=== PATIENT | female | born 1985 | race Caucasian/White ===

== ENCOUNTER 2017-12-16 00:37 | Inpatient (IN) | payer OTHER ==
[2017-12-16] MEDS ORDERED: LABETALOL 5 MG/ML VIAL MDV IVP STA ×2 (01:17→03:04)
--- NOTE | 2017-12-16 01:28 | ED ---
General Adult HPI - General Chief complaint: Recheck/Abnormal Lab/Rx Stated complaint: hypertension Time Seen by Provider: 12/16/17 01:14 Source: patient, family, RN notes reviewed Mode of arrival: ambulatory Limitations: no limitations - History of Present Illness Initial comments: This is a 32-year-old female who presents to the emergency department with chief complaint of high blood pressure. Patient was diagnosed with preeclampsia. She gave 4 days ago. Patient states that she did have a hemorrhage during childbirth. She states she is on oral labetalol. Patient states that the midwives from [place] delivered her baby. She states that she was in contact with them and they did recommend that she come to the emergency department. Patient states throughout today she has had a headache and lightheadedness. She states that she checked her blood pressure at home because she was feeling short of breath and had some chest pressure. She denies any abdominal pain, nausea or vomiting, loss of consciousness, diarrhea. Patient states that her vaginal bleeding is very minimal. - Related Data Home Medications Medication Instructions Recorded Confirmed Acetaminophen [Tylenol] 325 mg PO Q4H PRN 12/16/17 12/16/17 Docusate Sodium [Dok] 100 mg PO BID PRN 12/16/17 12/16/17 Ferrous Sulfate [Feosol] 325 mg PO BID 12/16/17 12/16/17 Labetalol [Trandate] 200 mg PO BID 12/16/17 12/16/17 Allergies Allergy/AdvReac Type Severity Reaction Status Date / Time No Known Allergies Allergy Verified 12/16/17 00:45 Review of Systems ROS Statement: Those systems with pertinent positive or pertinent negative responses have been documented in the HPI. ROS Other: All systems not noted in ROS Statement are negative. Past Medical History Additional Past Medical History / Comment(s): preeclampsia History of Any Multi-Drug Resistant Organisms: None Reported Additional Past Surgical History / Comment(s): ENT Past Psychological History: Anxiety, Depression Smoking Status: Former smoker Past Alcohol Use History: None Reported Past Drug Use History: None Reported General Exam - General Exam Comments Initial Comments: General: Awake and alert, well-developed; in no apparent distress. Pale and ill in appearance. HEENT: Head atraumatic, normocephalic. Pupils are equal, round and reactive to light. Extraocular movements intact. Oropharynx moist without erythema or exudate. Neck: Supple. Normal ROM. Cardiovascular: Regular rate and rhythm. No murmurs, rubs or gallops. Chest symmetrical. Respiratory: Lungs clear to auscultation bilaterally. No wheezes, rales or rhonchi. Normal respiratory effort with no use of accessory muscles. Abdomen: Soft, non-tender, non-distended. No rigidity, rebound or guarding. Normal bowel sounds in all 4 quadrants. Musculoskeletal: Normal ROM, no tenderness bilateral upper and lower extremities. Ambulating normally. Skin: Pale, warm and dry. Neurological: Alert and oriented x3. CN II-XII grossly intact. Speech is fluent and answers are appropriate. No focal neuro deficits. Psychiatric: Normal mood and affect. No overt signs of depression or anxiety noted. Limitations: no limitations Course Vital Signs 12/16/17 12/16/17 12/16/17 00:40 02:33 02:52 Temperature 98.3 F Pulse Rate 77 77 74 Respiratory 20 16 Rate Blood Pressure 172/85 159/71 153/74 O2 Sat by Pulse 99 98 Oximetry 12/16/17 12/16/17 12/16/17 03:23 03:34 03:46 Temperature Pulse Rate 69 77 71 Respiratory 16 16 Rate Blood Pressure 149/79 147/82 145/85 O2 Sat by Pulse 98 Oximetry - Reevaluation(s) Reevaluation #1: Spoke directly with DIRECTOR OF VITAL STATISTICS, Dr. Diamond. Labs have been ordered. Labetalol and magnesium have been ordered. Blood pressure will be stabilized then patient will be transferred to labor and delivery floor where she will be admitted to Dr. Diamond. 12/16/17 02:01 EKG Findings - EKG Comments: EKG Findings:: 2:20:59. Sinus bradycardia with premature ventricular complexes or fusion complexes. Septal infarct, age undetermined. Possible lateral infarct, age undetermined. Ventricular rate 55 bpm, MO interval 168, QRS duration 72, QT/QTC 390/373. EKG was also evaluated by attending physician, Dr. Hayden. Medical Decision Making - Medical Decision Making This is a 32-year-old female who presents to the emergency department with chief complaint of high blood pressure. Patient gave 4 days ago. She was diagnosed with preeclampsia. Patient states that throughout the day today she has felt dizzy and has had a headache. She states this evening she developed chest pressure and shortness of breath. She checked her blood pressure and it was 170/100. On presentation, patient had a blood pressure of 172/85. She will was given 20 mg of IV labetalol. This did bring her blood pressure down to 150s/70s. She was then given a dose of hydralazine. I was in contact with Dr. Diamond, on-call DIRECTOR OF VITAL STATISTICS. Once patient's blood pressure is stable she will be transferred to labor and delivery where she will be admitted and monitored. Magnesium has been ordered and is running. CBC does reveal a hemoglobin at 8.1. Patient does admit to having hemorrhage during , however patient states her hemoglobin is increased since discharge home when it was 7.3. CMP reveals a decreased total protein 5.7 and an albumin of 3.0. Chloride is 111. No other significant abnormalities. UA shows trace protein, large blood, large leukocyte esterase, >182 red blood cells, 45 white blood cells and rare bacteria. Urine culture is pending. Urine random, creatinine is 34.8 and urine random, total protein is elevated at 23. Patient's blood pressure has been stabilized. Orders are placed and patient is stable for transport to labor and delivery. She is in no acute distress. She is in agreement for admission. - Lab Data Result diagrams: 12/16/17 02:08 12/16/17 02:08 Lab Results 12/16/17 12/16/17 12/16/17 Range/Units 02:08 02:08 02:08 WBC 7.7 (3.8-10.6) k/uL RBC 3.10 L (3.80-5.40) m/uL Hgb 8.1 L (11.4-16.0) gm/dL Hct 25.5 L (34.0-46.0) % MCV 82.1 (80.0-100.0) fL MCH 26.1 (25.0-35.0) pg MCHC 31.7 (31.0-37.0) g/dL RDW 15.7 H (11.5-15.5) % Plt Count 264 (150-450) k/uL Neutrophils % 64 % Lymphocytes % 28 % Monocytes % 4 % Eosinophils % 3 % Basophils % 0 % Neutrophils # 4.9 (1.3-7.7) k/uL Lymphocytes # 2.2 (1.0-4.8) k/uL Monocytes # 0.3 (0-1.0) k/uL Eosinophils # 0.2 (0-0.7) k/uL Basophils # 0.0 (0-0.2) k/uL Hypochromasia Moderate PT (9.0-12.0) sec INR (<1.2) APTT (22.0-30.0) sec Sodium 142 (137-145) mmol/L Potassium 4.5 (3.5-5.1) mmol/L Chloride 111 H (98-107) mmol/L Carbon Dioxide 24 (22-30) mmol/L Anion Gap 7 mmol/L BUN 6 L (7-17) mg/dL Creatinine 0.58 (0.52-1.04) mg/dL Est GFR (CKD-EPI)AfAm >90 (>60 ml/min/1.73 sqM) Est GFR (CKD-EPI)NonAf >90 (>60 ml/min/1.73 sqM) Glucose 87 (74-99) mg/dL Uric Acid 5.9 (3.7-7.4) mg/dL Calcium 9.3 (8.4-10.2) mg/dL Magnesium 1.8 (1.6-2.3) mg/dL Total Bilirubin 0.1 L (0.2-1.3) mg/dL AST 19 (14-36) U/L ALT 24 (9-52) U/L Alkaline Phosphatase 97 (38-126) U/L Lactate Dehydrogenase 464 (313-618) U/L Total Protein 5.7 L (6.3-8.2) g/dL Albumin 3.0 L (3.5-5.0) g/dL Urine Color Urine Appearance (Clear) Urine pH (5.0-8.0) Ur Specific [place] (1.001-1.035) Urine Protein (Negative) Urine Glucose (UA) (Negative) Urine Ketones (Negative) Urine Blood (Negative) Urine Nitrite (Negative) Urine Bilirubin (Negative) Urine Urobilinogen (<2.0) mg/dL Ur Leukocyte Esterase (Negative) Urine RBC (0-5) /hpf Urine WBC (0-5) /hpf Ur Squamous Epith Cells (0-4) /hpf Urine Bacteria (None) /hpf Urine Mucus (None) /hpf Ur Random Creatinine mg/dL U Random Total Protein (<12) mg/dL 12/16/17 12/16/17 12/16/17 Range/Units 02:11 02:11 02:11 WBC (3.8-10.6) k/uL RBC (3.80-5.40) m/uL Hgb (11.4-16.0) gm/dL Hct (34.0-46.0) % MCV (80.0-100.0) fL MCH (25.0-35.0) pg MCHC (31.0-37.0) g/dL RDW (11.5-15.5) % Plt Count (150-450) k/uL Neutrophils % % Lymphocytes % % Monocytes % % Eosinophils % % Basophils % % Neutrophils # (1.3-7.7) k/uL Lymphocytes # (1.0-4.8) k/uL Monocytes # (0-1.0) k/uL Eosinophils # (0-0.7) k/uL Basophils # (0-0.2) k/uL Hypochromasia PT (9.0-12.0) sec INR (<1.2) APTT (22.0-30.0) sec Sodium (137-145) mmol/L Potassium (3.5-5.1) mmol/L Chloride (98-107) mmol/L Carbon Dioxide (22-30) mmol/L Anion Gap mmol/L BUN (7-17) mg/dL Creatinine (0.52-1.04) mg/dL Est GFR (CKD-EPI)AfAm (>60 ml/min/1.73 sqM) Est GFR (CKD-EPI)NonAf (>60 ml/min/1.73 sqM) Glucose (74-99) mg/dL Uric Acid (3.7-7.4) mg/dL Calcium (8.4-10.2) mg/dL Magnesium (1.6-2.3) mg/dL Total Bilirubin (0.2-1.3) mg/dL AST (14-36) U/L ALT (9-52) U/L Alkaline Phosphatase (38-126) U/L Lactate Dehydrogenase (313-618) U/L Total Protein (6.3-8.2) g/dL Albumin (3.5-5.0) g/dL Urine Color Yellow Urine Appearance Clear (Clear) Urine pH 7.5 (5.0-8.0) Ur Specific [place] 1.007 (1.001-1.035) Urine Protein Trace H (Negative) Urine Glucose (UA) Negative (Negative) Urine Ketones Negative (Negative) Urine Blood Large H (Negative) Urine Nitrite Negative (Negative) Urine Bilirubin Negative (Negative) Urine Urobilinogen <2.0 (<2.0) mg/dL Ur Leukocyte Esterase Large H (Negative) Urine RBC >182 H (0-5) /hpf Urine WBC 45 H (0-5) /hpf Ur Squamous Epith Cells 1 (0-4) /hpf Urine Bacteria Rare H (None) /hpf Urine Mucus Rare H (None) /hpf Ur Random Creatinine 34.8 mg/dL U Random Total Protein 23 H (<12) mg/dL 12/16/17 Range/Units 02:33 WBC (3.8-10.6) k/uL RBC (3.80-5.40) m/uL Hgb (11.4-16.0) gm/dL Hct (34.0-46.0) % MCV (80.0-100.0) fL MCH (25.0-35.0) pg MCHC (31.0-37.0) g/dL RDW (11.5-15.5) % Plt Count (150-450) k/uL Neutrophils % % Lymphocytes % % Monocytes % % Eosinophils % % Basophils % % Neutrophils # (1.3-7.7) k/uL Lymphocytes # (1.0-4.8) k/uL Monocytes # (0-1.0) k/uL Eosinophils # (0-0.7) k/uL Basophils # (0-0.2) k/uL Hypochromasia PT 9.6 (9.0-12.0) sec INR 1.0 (<1.2) APTT 22.1 (22.0-30.0) sec Sodium (137-145) mmol/L Potassium (3.5-5.1) mmol/L Chloride (98-107) mmol/L Carbon Dioxide (22-30) mmol/L Anion Gap mmol/L BUN (7-17) mg/dL Creatinine (0.52-1.04) mg/dL Est GFR (CKD-EPI)AfAm (>60 ml/min/1.73 sqM) Est GFR (CKD-EPI)NonAf (>60 ml/min/1.73 sqM) Glucose (74-99) mg/dL Uric Acid (3.7-7.4) mg/dL Calcium (8.4-10.2) mg/dL Magnesium (1.6-2.3) mg/dL Total Bilirubin (0.2-1.3) mg/dL AST (14-36) U/L ALT (9-52) U/L Alkaline Phosphatase (38-126) U/L Lactate Dehydrogenase (313-618) U/L Total Protein (6.3-8.2) g/dL Albumin (3.5-5.0) g/dL Urine Color Urine Appearance (Clear) Urine pH (5.0-8.0) Ur Specific [place] (1.001-1.035) Urine Protein (Negative) Urine Glucose (UA) (Negative) Urine Ketones (Negative) Urine Blood (Negative) Urine Nitrite (Negative) Urine Bilirubin (Negative) Urine Urobilinogen (<2.0) mg/dL Ur Leukocyte Esterase (Negative) Urine RBC (0-5) /hpf Urine WBC (0-5) /hpf Ur Squamous Epith Cells (0-4) /hpf Urine Bacteria (None) /hpf Urine Mucus (None) /hpf Ur Random Creatinine mg/dL U Random Total Protein (<12) mg/dL Disposition Clinical Impression: Preeclampsia Disposition: ADMITTED IP TO THIS HOSP Condition: Fair Is patient prescribed a controlled substance at d/c from ED?: No Referrals: None,Stated [Primary Care Provider] - 1-2 days Time of Disposition: 03:53
[2017-12-16] MEDS ORDERED: MAGNESIUM SULFATE-D5W PMX 1 GM in DEXTROSE/WATER 1 100ML.BAG IVPB SCH (01:30)
[2017-12-16] MEDS: MAGNESIUM SULFATE-D5W PMX 1 GM in DEXTROSE/WATER 1 100ML.BAG IVPB SCH ×4 (02:00→06:19)
[2017-12-16 02:19] LABS: Basophils % (A) 0 %; Eosinophils # (A) 0.2 k/uL (0-0.7); Eosinophils % (A) 3 %; HCT 25.5 % (34.0-46.0); HGB 8.1 gm/dL (11.4-16.0); Hypochromasia Moderate; Lymphocytes # (A) 2.2 k/uL (1.0-4.8); Lymphocytes % (A) 28 %; MCH 26.1 pg (25.0-35.0); MCHC 31.7 g/dL (31.0-37.0); MCV 82.1 fL (80.0-100.0); Mean Platelet Volume 6.4; Monocytes # (A) 0.3 k/uL (0-1.0); Monocytes % (A) 4 %; Neutrophils # (A) 4.9 k/uL (1.3-7.7); Neutrophils % (A) 64 %; Platelet Count 264 k/uL (150-450); RDW 15.7 % (11.5-15.5); WBC 7.7 k/uL (3.8-10.6)
[2017-12-16 02:28] LABS: Appearance,Urine Clear (Clear); Bacteria,Urine Rare /hpf; Bilirubin,Urine Negative (Negative); Blood,Urine Large (Negative); Color,Urine Yellow; Glucose,Urine (UA) Negative (Negative); Ketones,Urine Negative (Negative); Leukocyte Esterase,Urine Large (Negative); Mucus,Urine Rare /hpf; Nitrite,Urine Negative (Negative); PH, Urine 7.5 (5.0-8.0); Protein,Urine Trace (Negative); RBC,Urine >182 /hpf (0-5); Specific Gravity,Urine 1.007 (1.001-1.035); Squamous Epithelial Cell,Urine 1 /hpf (0-4); Urobilinogen,Urine <2.0 mg/dL (<2.0); WBC,Urine 45 /hpf (0-5)
[2017-12-16 02:34] LABS: ALT 24 U/L (9-52); AST 19 U/L (14-36); Alkaline Phosphatase 97 U/L (38-126); Anion Gap 7 mmol/L; Blood Urea Nitrogen 6 mg/dL (7-17); Calcium 9.3 mg/dL (8.4-10.2); Carbon Dioxide 24 mmol/L (22-30); Chloride 111 mmol/L (98-107); Glucose 87 mg/dL (74-99); LDH 464 U/L (313-618); Potassium 4.5 mmol/L (3.5-5.1); Sodium 142 mmol/L (137-145); Total Bilirubin 0.1 mg/dL (0.2-1.3); Total Protein 5.7 g/dL (6.3-8.2); Uric Acid 5.9 mg/dL (3.7-7.4)
[2017-12-16 02:52] LABS: Partial Thromboplastin Time 22.1 sec (22.0-30.0); Prothrombin Time 9.6 sec (9.0-12.0)
[2017-12-16] MEDS ORDERED: hydrALAZINE HCL 20 MG/ML 1 ML VIAL IVP STA (03:05)
[2017-12-16] MEDS ORDERED: hydrALAZINE HCL 20 MG/ML 1 ML VIAL IVP PRN (03:47)
[2017-12-16] MEDS ORDERED: LABETALOL 5 MG/ML VIAL MDV IVP PRN ×3 (03:47)
[2017-12-16] MEDS ORDERED: SODIUM CHLORIDE 0.9% 1,000 ML IV STA (03:50)
[2017-12-16] MEDS ORDERED: ACETAMINOPHEN TAB 325 MG TAB PO STA (03:57)
[2017-12-16 05:31] VITALS: BMI 41.0
[2017-12-16] MEDS ORDERED: CALCIUM CHLORIDE 500 MG in SODIUM CHLORIDE 0.9% 50 ML IVPB ONE (05:56)
[2017-12-16] MEDS ORDERED: MAGNESIUM SULFATE-WATER PMX 4 GM in WATER FOR INJECTION 1 50ML.BAG IVPB ONE (05:56)
[2017-12-16] MEDS: LACTATED RINGERS 1,000 ML IV SCH (06:00)
[2017-12-16] MEDS: MAGNESIUM SULFATE-WATER PMX 20 GM in WATER FOR INJECTION 1 500ML.BAG IV SCH ×2 (06:46→17:11)
--- NOTE | 2017-12-16 11:33 | P.HPOB ---
History of Present Illness H&P Date: 12/16/17 Chief Complaint: pre-eclampsia 32 year old presents 5 days post from a vaginal delivery with increased blood pressure and headache. She was diagnosed with pre-eclampsia and delivered at [facility] on 12-11-17. She was then given magnesium sulfate for 12 hours after delivery. Upon discharge she was given a prescription for labetalol 200mg to take twice daily and a blood pressure cuff to monitor at home. Her BP was elevated last night and she came to our ER. HEr her BP was 170's over 90's. She was treated with IV labetalol, hydralizine and magnesium sulfate. Her labs are normal except a PC ratio of 0.66. She has severe pre-eclampsia by blood pressure and by neurologic symptom of headache. I will admit her and keep her on mag sulfate for at least 24 hours. Review of Systems All systems: negative Constitutional: Denies chills, Denies fever Eyes: denies blurred vision, denies pain Ears, nose, mouth and throat: Denies headache, Denies sore throat Cardiovascular: Denies chest pain, Denies shortness of breath Respiratory: Denies cough Gastrointestinal: Denies abdominal pain, Denies diarrhea, Denies nausea, Denies vomiting Genitourinary: Denies dysuria, Denies hematuria Musculoskeletal: Denies myalgias Integumentary: Denies pruritus, Denies rash Neurological: Denies numbness, Denies weakness Psychiatric: Denies anxiety, Denies depression Endocrine: Denies fatigue, Denies weight change Past Medical History Additional Past Medical History / Comment(s): preeclampsia, PPD #5 History of Any Multi-Drug Resistant Organisms: None Reported Additional Past Surgical History / Comment(s): ENT Past Anesthesia/Blood Transfusion Reactions: No Reported Reaction Past Psychological History: Anxiety, Depression Smoking Status: Former smoker Past Alcohol Use History: None Reported Past Drug Use History: None Reported - Past Family History Father History Unknown: Yes Family Medical History: Cancer Additional Family Medical History / Comment(s): pancreatic Medications and Allergies Home Medications Medication Instructions Recorded Confirmed Type Acetaminophen [Tylenol] 325 mg PO Q4H PRN 12/16/17 12/16/17 History Docusate Sodium [Dok] 100 mg PO BID PRN 12/16/17 12/16/17 History Ferrous Sulfate [Feosol] 325 mg PO BID 12/16/17 12/16/17 History Labetalol [Trandate] 200 mg PO BID 12/16/17 12/16/17 History Allergies Allergy/AdvReac Type Severity Reaction Status Date / Time No Known Allergies Allergy Verified 12/16/17 00:45 Exam Osteopathic Statement: *. No significant issues noted on an osteopathic structural exam other than those noted in the History and Physical/Consult. Vital Signs Temp Pulse Pulse Resp BP BP Pulse Ox 12/16/17 11:00 79 16 130/81 96 12/16/17 10:00 76 16 133/71 96 12/16/17 09:00 72 16 134/75 96 12/16/17 08:00 97.7 F 82 16 138/82 98 12/16/17 07:00 98.4 F 70 16 127/75 97 12/16/17 06:44 73 16 134/84 99 12/16/17 06:29 76 16 162/86 97 12/16/17 06:15 89 16 139/65 98 12/16/17 06:00 69 16 129/74 98 12/16/17 05:50 63 16 147/84 98 12/16/17 05:40 63 16 138/86 98 12/16/17 05:25 70 16 140/85 98 12/16/17 05:23 98.4 F 75 16 157/86 98 12/16/17 05:10 98.4 F 75 16 157/86 98 12/16/17 04:35 75 16 137/77 99 12/16/17 03:46 71 16 145/85 98 12/16/17 03:34 77 16 147/82 12/16/17 03:23 69 149/79 12/16/17 02:52 74 153/74 12/16/17 02:33 77 16 159/71 98 12/16/17 00:40 98.3 F 77 20 172/85 99 Intake and Output 12/15/17 12/16/17 12/16/17 22:59 06:59 14:59 Output Total 1800 1400 Balance -1800 -1400 Output: Urine 1800 1400 Uretheral (Brar) 900 Other: Voiding Method Indwelling Catheter # Voids 1 Weight 111.856 kg HEart: RRR Lungs: CTAB Abdomen: soft, nontender Extremeties: neg hernan's 2+ DTR Results Result Diagrams: 12/16/17 02:08 12/16/17 02:08 Abnormal Lab Results - Last 24 Hours (Table) 12/16/17 12/16/17 12/16/17 Range/Units 02:08 02:08 02:11 RBC 3.10 L (3.80-5.40) m/uL Hgb 8.1 L (11.4-16.0) gm/dL Hct 25.5 L (34.0-46.0) % RDW 15.7 H (11.5-15.5) % Chloride 111 H (98-107) mmol/L BUN 6 L (7-17) mg/dL Total Bilirubin 0.1 L (0.2-1.3) mg/dL Total Protein 5.7 L (6.3-8.2) g/dL Albumin 3.0 L (3.5-5.0) g/dL Urine Protein Trace H (Negative) Urine Blood Large H (Negative) Ur Leukocyte Esterase Large H (Negative) Urine RBC >182 H (0-5) /hpf Urine WBC 45 H (0-5) /hpf Urine Bacteria Rare H (None) /hpf Urine Mucus Rare H (None) /hpf U Random Total Protein (<12) mg/dL 12/16/17 Range/Units 02:11 RBC (3.80-5.40) m/uL Hgb (11.4-16.0) gm/dL Hct (34.0-46.0) % RDW (11.5-15.5) % Chloride (98-107) mmol/L BUN (7-17) mg/dL Total Bilirubin (0.2-1.3) mg/dL Total Protein (6.3-8.2) g/dL Albumin (3.5-5.0) g/dL Urine Protein (Negative) Urine Blood (Negative) Ur Leukocyte Esterase (Negative) Urine RBC (0-5) /hpf Urine WBC (0-5) /hpf Urine Bacteria (None) /hpf Urine Mucus (None) /hpf U Random Total Protein 23 H (<12) mg/dL Microbiology - Last 24 Hours (Table) 12/16/17 02:11 Urine Culture - Preliminary Urine,Voided Assessment and Plan (1) Pre-eclampsia, severe, delivered Current Visit: Yes Status: Acute Code(s): O14.14 - SEVERE PRE-ECLAMPSIA COMPLICATING CHILDBIRTH SNOMED Code(s): 472217986 Plan: 1. admit to [facility] 2. seizure precautions 3. magnesium sulfate 4. strict I's and O's 5. monitor closely with vitals and neurologic symptoms.
[2017-12-16] MEDS: ACETAMINOPHEN TAB 500 MG TAB PO PRN ×2 (13:31→19:02)
[2017-12-16] MEDS: LABETALOL 200 MG TAB PO SCH ×2 (17:34→21:06)
[2017-12-16] MEDS: SERTRALINE 50 MG TAB PO SCH (21:06)
[2017-12-17] MEDS: ACETAMINOPHEN TAB 500 MG TAB PO PRN (01:22)
[2017-12-17] MEDS: LACTATED RINGERS 1,000 ML IV SCH (01:24)
[2017-12-17] MEDS: MAGNESIUM SULFATE-WATER PMX 20 GM in WATER FOR INJECTION 1 500ML.BAG IV SCH ×2 (02:02→20:37)
[2017-12-17] MEDS: LABETALOL 200 MG TAB PO SCH ×2 (10:11→21:13)
[2017-12-17] MEDS: SERTRALINE 50 MG TAB PO SCH (21:13)
[2017-12-17] MEDS ORDERED: CITALOPRAM HYDROBROMIDE 10 MG TAB PO SCH (23:00)
[2017-12-18] MEDS ORDERED: ZOLPIDEM 5 MG TAB PO PRN (02:27)
--- NOTE | 2017-12-18 07:23 | P.PN ---
Progress Note - Text Progress Note Date: 12/17/17 Pt is feeling better. She has had a great deal of urine output to the point of losing 10 pounds. BPs have been 130-150/70-80's. Labetalol 200mg bid has been restarted. She was also started on zoloft for her anxiety last night. Her headache has improved. Denies N/V, F/C, CP, SOB or calf pain. Minimal lochia. SHe is pumping breast milk every 3 hours. I will stop the mag sulfate today and put her back see how her BPs do on labetalol alone.
[2017-12-18] MEDS ORDERED: LABETALOL 200 MG TAB PO SCH (08:00)
[2017-12-18 09:27] VITALS: BP 134/70; PULSE 68; RESP 18; TEMP 98.1
--- NOTE | 2017-12-18 09:42 | P.DS ---
Providers Date of admission: 12/16/17 04:08 Expected date of discharge: 12/18/17 Attending physician: Kriss Diamond Primary care physician: Stated None - Discharge Diagnosis(es) (1) Pre-eclampsia, severe, delivered Current Visit: Yes Status: Acute Hospital Course: 32-year-old status post vaginal delivery presented day #5 with severe preeclampsia. She was placed on magnesium sulfate for 24 hours. Her output was such that she lost 10 pounds of fluid. Her blood pressures came down with the magnesium and labetalol 200 mg 3 times a day. After magnesium came off she continue labetalol 200 mg 3 times a day and will continue this at home. She denies headache, vision changes, nausea, vomiting, chest pain or shortness of breath. Her reflexes are 2+ she has no pitting edema. Discharge instructions have been discussed with her at length including and symptoms of preeclampsia and severe preeclampsia. She knows to call with any signs of this she does have a blood pressure cuff at home. She will check her blood pressure a few times a day along with taking her labetalol every 8 hours. If she has elevated blood pressures of over 160/100 she is to call my office and discussed this with the doctor agricultural production engineer and possibly come back to the hospital. She is to follow-up with me in 4 days for blood pressure check in the office. Patient Condition at Discharge: Fair Plan - Discharge Summary New Discharge Prescriptions: New Citalopram Hydrobromide [CeleXA] 10 mg PO DAILY #30 tab Labetalol [Trandate] 200 mg PO Q8HR #90 tablet Zolpidem Tartrate [Ambien] 5 mg PO HS PRN 3 Days #3 tab PRN Reason: Insomnia No Action Acetaminophen [Tylenol] 325 mg PO Q4H PRN PRN Reason: Pain Ferrous Sulfate [Feosol] 325 mg PO BID Docusate Sodium [Dok] 100 mg PO BID PRN PRN Reason: Constipation Labetalol [Trandate] 200 mg PO BID Discharge Medication List Acetaminophen [Tylenol] 325 mg PO Q4H PRN 12/16/17 [History] Docusate Sodium [Dok] 100 mg PO BID PRN 12/16/17 [History] Ferrous Sulfate [Feosol] 325 mg PO BID 12/16/17 [History] Labetalol [Trandate] 200 mg PO BID 10/02/18 [History] Citalopram Hydrobromide [CeleXA] 10 mg PO DAILY #30 tab 12/18/17 [Rx] Labetalol [Trandate] 200 mg PO Q8HR #90 tablet 12/18/17 [Rx] Zolpidem Tartrate [Ambien] 5 mg PO HS PRN 3 Days #3 tab 12/18/17 [Rx] Follow up Appointment(s)/Referral(s): None,Stated [Primary Care Provider] - 1-2 days Kriss Diamond DO [Doctor of Osteopathic Medicine] - 12/22/17 9:00 am
[2017-12-18] MEDS ORDERED: CITALOPRAM HYDROBROMIDE 10 MG TAB PO SCH (23:00)
== END 2017-12-18 13:09 | disposition home or self-care (01) | DRG 776 ==
LOC: EC 00:37 → 4FBP 04:08
PROVIDERS: ADMIT Obstetrics & Gynecology; ATTEND Obstetrics & Gynecology
DX: O14.95 Unspecified pre-eclampsia, complicating the puerperium (principal); F41.9 Anxiety disorder, unspecified
CPT/HCPCS: 36415; 80053; 81001; 82570; 83615; 83735; 84156; 84550; 85025; 85610; 85730; 87086; 93005; 96365; 96375; 99284